=== PATIENT | female | born 1955 | race Caucasian/White ===

== ENCOUNTER 2017-03-22 12:36 | Inpatient (IN) | payer MEDICAID, OTHER ==
[~2017-03-22] VITALS: Ht 157.5 cm; Wt 82.6 kg
[2017-03-22 14:21] LABS: ANION GAP 8 mmol/L (8-16); CALCIUM, TOTAL 9.5 mg/dL (8.8-10.5); CARBON DIOXIDE 29 mmol/L (22-29); CHLORIDE 102 mmol/L (98-107); CREATININE 0.99 mg/dL (0.60-1.30); GLOMERULAR FILTR. RATE CALC 57 mL/min (>60); GLUCOSE,RANDOM 107 mg/dL (70-110); POTASSIUM 4.5 mmol/L (3.5-5.1); SODIUM SERUM 139 mmol/L (136-145); UREA NITROGEN, BLOOD 18 mg/dL (7-18)
[2017-03-22 14:24] LABS: BASOPHILS # (AUTO) 0.04 K/uL (0.00-0.20); BASOPHILS % (AUTO) 0.4 % (0.0-2.0); EOSINOPHILS # (AUTO) 0.27 K/uL (0.00-0.70); EOSINOPHILS % (AUTO) 2.82 % (1.0-6.0); HEMATOCRIT 41.6 % (36-46); HEMOGLOBIN 13.7 g/dL (12.0-16.0); LYMPHOCYTES # (AUTO) 2.8 K/uL (1.0-4.8); LYMPHOCYTES % (AUTO) 29.1 % (22.0-44.0); MEAN CORPUSCULAR HEMOGLOBIN 29.6 pg (26.0-34.0); MEAN CORPUSCULAR HGB CONC 32.8 G/dL (31.0-37.0); MEAN CORPUSCULAR VOLUME 90 fL (80-100); MONOCYTES # (AUTO) 0.7 K/uL (0.1-1.0); MONOCYTES % (AUTO) 6.9 % (2.0-9.0); NEUTROPHILS # (AUTO) 5.9 K/uL (1.8-7.7); NEUTROPHILS % (AUTO) 60.7 % (40.0-70.0); PLATELET COUNT (AUTO) 562 K/uL (150-450); RED BLOOD CELL COUNT(AUTO) 4.61 MIL/uL (4.00-5.20)
[2017-03-22 14:29] LABS: ALANINE AMINOTRANSFERASE 20 U/L (12-78); ALBUMIN 3.5 g/dL (3.4-5.0); ALKALINE PHOSPHATASE 112 U/L (46-116); ASPARTATE AMINOTRANSFERASE 16 U/L (15-37); BILIRUBIN,TOTAL 0.4 mg/dL (0.1-1.0); TOTAL PROTEIN, SERUM 7.6 g/dL (6.4-8.2)
[2017-03-22] MEDS ORDERED: HALOPERIDOL 5 MG TABLET PO PRN (15:30)
[2017-03-22] MEDS ORDERED: ZOLPIDEM TARTRATE 10 MG TABLET PO PRN (15:30)
[2017-03-22] MEDS ORDERED: LORazepam 2 MG TABLET PO PRN (15:30)
[2017-03-22 19:13] LABS: AMPHET/METH SCREEN,URINE POSITIVE (NEGATIVE); BARBITURATE SCREEN, URINE NEGATIVE (NEGATIVE); BENZODIAZEPINES SCREEN,URINE NEGATIVE (NEGATIVE); CANNABINOID SCREEN,URINE NEGATIVE (NEGATIVE); COCAINE SCREEN,URINE NEGATIVE (NEGATIVE); METHADONE SCREEN, URINE NEGATIVE (NEGATIVE); OPIATE SCREEN,URINE NEGATIVE (NEGATIVE)
[2017-03-22 19:14] LABS: PHENCYCLIDINE SCREEN,URINE NEGATIVE (NEGATIVE)
[2017-03-23 08:29] LABS: FREE T4 (FREE THYROXINE) 0.97 ng/dL (0.76-1.46); THYROID STIMULATING HORMONE 0.63 uIU/mL (0.36-3.74)
[2017-03-23 09:45] VITALS: BP 129/63
[2017-03-23] MEDS: NICOTINE 7 MG/24 HOUR PATCH TD SCH (13:59)
[2017-03-23 16:21] VITALS: BP 131/63
[2017-03-24] MEDS: NICOTINE 7 MG/24 HOUR PATCH TD SCH (09:44)
[2017-03-24 19:22] VITALS: BP 128/67
[2017-03-25] MEDS: SERTRALINE HCL 50 MG TABLET PO SCH (09:33)
[2017-03-25] MEDS: NICOTINE 7 MG/24 HOUR PATCH TD SCH (09:35)
[2017-03-25 13:45] VITALS: BP 198/112
[2017-03-25] MEDS: METOPROLOL TARTRATE 25 MG TABLET PO SCH ×2 (14:49→17:30)
[2017-03-25 15:43] VITALS: BP 194/120
[2017-03-25] MEDS: HydrALAZINE HCL 25 MG TABLET PO SCH ×2 (16:16→17:46)
[2017-03-25 17:00] VITALS: BP 180/100
[2017-03-25] MEDS: BACITRACIN 28.4 GM OINTMENT TP SCH (17:32)
[2017-03-25 21:45] VITALS: BP 152/76
[2017-03-25 23:57] LABS: APPEARANCE,URINE CLEAR (CLEAR); BILIRUBIN,URINE NEGATIVE (NEGATIVE); GLUCOSE, URINE (UA) NEGATIVE (NEGATIVE); KETONES,URINE NEGATIVE (NEGATIVE); LEUKOCYTE ESTERASE ,URINE NEGATIVE (NEGATIVE); NITRATE,URINE POSITIVE (NEGATIVE); OCCULT BLOOD,URINE NEGATIVE (NEGATIVE); PROTEIN,URINE NEGATIVE (NEGATIVE); UROBILINOGEN,URINE 0.2 mg/dL (<=1.0)
[2017-03-25 23:59] LABS: HCG,QUAL RESULT NEGATIVE (NEGATIVE)
[2017-03-26 00:05] LABS: BACTERIA,URINE Moderate /HPF (None Seen); RBC,URINE None Seen /HPF (0-2); SQUAMOUS EPITHELIAL CELL,UR Rare /LPF (None Seen); WBC,URINE 0-2 /HPF (0-5)
[2017-03-26 05:30] VITALS: BP 188/94
[2017-03-26] MEDS: CloNIDine HCL 0.1 MG TABLET PO PRN (05:30)
[2017-03-26 06:30] VITALS: BP 168/74
[2017-03-26] MEDS: SERTRALINE HCL 50 MG TABLET PO SCH (08:29)
[2017-03-26 08:30] VITALS: BP 162/113
[2017-03-26] MEDS: HydrALAZINE HCL 25 MG TABLET PO SCH ×3 (08:30→16:19)
[2017-03-26] MEDS: METOPROLOL TARTRATE 25 MG TABLET PO SCH ×2 (08:32→16:19)
[2017-03-26] MEDS: NICOTINE 7 MG/24 HOUR PATCH TD SCH (08:34)
[2017-03-26] MEDS: BACITRACIN 28.4 GM OINTMENT TP SCH ×2 (10:11→16:20)
[2017-03-26 12:32] VITALS: BP 130/74
[2017-03-26 17:15] VITALS: BP 141/81
[2017-03-27 02:15] VITALS: BP 179/67
[2017-03-27] MEDS: CloNIDine HCL 0.1 MG TABLET PO PRN (02:49)
[2017-03-27 03:49] VITALS: BP 135/63
[2017-03-27 08:40] VITALS: BP 137/73
[2017-03-27] MEDS: HydrALAZINE HCL 25 MG TABLET PO SCH ×3 (09:21→17:43)
[2017-03-27] MEDS: BACITRACIN 28.4 GM OINTMENT TP SCH ×2 (09:21→17:39)
[2017-03-27] MEDS: METOPROLOL TARTRATE 25 MG TABLET PO SCH ×2 (09:21→17:43)
[2017-03-27] MEDS: SERTRALINE HCL 50 MG TABLET PO SCH (09:21)
[2017-03-27] MEDS: NICOTINE 7 MG/24 HOUR PATCH TD SCH (09:27)
[2017-03-27 17:30] VITALS: BP 162/72
[2017-03-27] MEDS: CIPROFLOXACIN HCL 500 MG TABLET PO SCH (17:40)
[2017-03-28 08:42] VITALS: BP 177/71
[2017-03-28] MEDS: CIPROFLOXACIN HCL 500 MG TABLET PO SCH ×2 (09:35→16:46)
[2017-03-28] MEDS: METOPROLOL TARTRATE 25 MG TABLET PO SCH ×2 (09:35→16:46)
[2017-03-28] MEDS: HydrALAZINE HCL 25 MG TABLET PO SCH ×3 (09:35→16:46)
[2017-03-28] MEDS: SERTRALINE HCL 50 MG TABLET PO SCH (09:35)
[2017-03-28] MEDS: BACITRACIN 28.4 GM OINTMENT TP SCH ×2 (09:35→16:46)
[2017-03-28] MEDS: NICOTINE 7 MG/24 HOUR PATCH TD SCH (09:50)
[2017-03-28 18:58] VITALS: BP 167/74
[2017-03-28] MEDS: CloNIDine HCL 0.1 MG TABLET PO PRN (20:26)
[2017-03-29 09:57] VITALS: BP 160/80
[2017-03-29] MEDS: CIPROFLOXACIN HCL 500 MG TABLET PO SCH ×2 (11:23→17:50)
[2017-03-29] MEDS: HydrALAZINE HCL 25 MG TABLET PO SCH ×3 (11:23→17:50)
[2017-03-29] MEDS: NICOTINE 7 MG/24 HOUR PATCH TD SCH (11:23)
[2017-03-29] MEDS: SERTRALINE HCL 50 MG TABLET PO SCH (11:23)
[2017-03-29] MEDS: BACITRACIN 28.4 GM OINTMENT TP SCH ×2 (11:23→17:50)
[2017-03-29] MEDS: METOPROLOL TARTRATE 25 MG TABLET PO SCH ×2 (11:24→17:50)
[2017-03-29 16:03] VITALS: BP 136/74
[2017-03-30] MEDS: HydrALAZINE HCL 25 MG TABLET PO SCH ×2 (08:19→12:30)
[2017-03-30] MEDS: NICOTINE 7 MG/24 HOUR PATCH TD SCH (08:19)
[2017-03-30] MEDS: BACITRACIN 28.4 GM OINTMENT TP SCH (08:20)
[2017-03-30] MEDS: SERTRALINE HCL 50 MG TABLET PO SCH (08:20)
[2017-03-30] MEDS: CIPROFLOXACIN HCL 500 MG TABLET PO SCH (08:20)
[2017-03-30] MEDS: METOPROLOL TARTRATE 25 MG TABLET PO SCH (08:20)
[2017-03-30 08:45] VITALS: BP 159/98
[2017-03-30] MEDS ORDERED: SERT50TA12 PO (11:01)
[2017-03-30] MEDS ORDERED: METO25 PO (11:24)
[2017-03-30] MEDS ORDERED: HYDR25TA84 PO (11:25)
[2017-03-30] MEDS ORDERED: CIPR-278 PO (11:25)
== END 2017-03-30 13:45 | disposition home or self-care (01) | DRG 751 ==
LOC: EMS 12:37 → AHU 03-23 09:06 → 3EI 03-23 18:46
PROVIDERS: ADMIT Psychiatry & Neurology Child & Adolescent Psychiatry; ATTEND Psychiatry & Neurology Child & Adolescent Psychiatry
DX: F33.2 Major depressive disorder, recurrent severe without psychotic features (principal); R45.851 Suicidal ideations; Z91.14 Patient's other noncompliance with medication regimen; I10 Essential (primary) hypertension; F15.10 Other stimulant abuse, uncomplicated; F17.210 Nicotine dependence, cigarettes, uncomplicated; F10.10 Alcohol abuse, uncomplicated; Z91.5 Personal history of self-harm; Z59.0 Homelessness; Z86.73 Personal history of transient ischemic attack (TIA), and cerebral infarction without residual deficits; Z88.8 Allergy status to other drugs, medicaments and biological substances
CPT/HCPCS: 84439; 84443; 87086; 97161; 97165; 99285; G0480

== ENCOUNTER 2017-06-19 14:49 | Emergency (ER) | payer OTHER ==
[~2017-06-19] VITALS: Ht 167.6 cm; Wt 72.7 kg
[~2017-06-19 14:49] MED LIST: CIPR-278 PO; HYDR25TA84 PO; METO25 PO; SERT50TA12 PO
[2017-06-19] MEDS ORDERED: SODIUM CHLORIDE 0.9% 1,000 ML IV ONE (16:00)
[2017-06-19] MEDS ORDERED: KETOROLAC TROMETHAMINE 30 MG/ML VIAL IVP ONE (16:45)
[2017-06-19 18:12] LABS: BASOPHILS % (AUTO) 1.3 % (0.0-2.0); EOSINOPHILS % (AUTO) 3.2 % (1.0-6.0); HEMATOCRIT 39.5 % (36-46); HEMOGLOBIN 12.8 g/dL (12.0-16.0); LYMPHOCYTES % (AUTO) 38.6 % (22.0-44.0); MEAN CORPUSCULAR HEMOGLOBIN 27.1 pg (26.0-34.0); MEAN CORPUSCULAR HGB CONC 32.5 G/dL (31.0-37.0); MEAN CORPUSCULAR VOLUME 83 fL (80-100); MONOCYTES # (AUTO) 0.6 K/uL (0.1-1.0); MONOCYTES % (AUTO) 6.2 % (2.0-9.0); NEUTROPHILS # (AUTO) 5.3 K/uL (1.8-7.7); NEUTROPHILS % (AUTO) 50.7 % (40.0-70.0); PLATELET COUNT (AUTO) 434 K/uL (150-450); RED BLOOD CELL COUNT(AUTO) 4.74 MIL/uL (4.00-5.20); RED CELL DISTRIBUTION WIDTH 16.5 % (11.5-14.5)
[2017-06-19 18:22] LABS: AMPHET/METH SCREEN,URINE POSITIVE (NEGATIVE); BARBITURATE SCREEN, URINE NEGATIVE (NEGATIVE); BENZODIAZEPINES SCREEN,URINE NEGATIVE (NEGATIVE); CANNABINOID SCREEN,URINE NEGATIVE (NEGATIVE); COCAINE SCREEN,URINE NEGATIVE (NEGATIVE); METHADONE SCREEN, URINE NEGATIVE (NEGATIVE); OPIATE SCREEN,URINE NEGATIVE (NEGATIVE)
[2017-06-19 18:25] LABS: ANION GAP 9 mmol/L (8-16); CALCIUM, TOTAL 9.3 mg/dL (8.8-10.5); CARBON DIOXIDE 30 mmol/L (22-29); CHLORIDE 106 mmol/L (98-107); CREATININE 1.07 mg/dL (0.60-1.30); GLOMERULAR FILTR. RATE CALC 52 mL/min (>60); GLUCOSE,RANDOM 134 mg/dL (70-110); SODIUM SERUM 145 mmol/L (136-145); UREA NITROGEN, BLOOD 21 mg/dL (7-18)
[2017-06-19 18:27] LABS: PHENCYCLIDINE SCREEN,URINE NEGATIVE (NEGATIVE)
[2017-06-19 18:31] LABS: ALANINE AMINOTRANSFERASE 15 U/L (12-78); ALBUMIN 3.1 g/dL (3.4-5.0); ALKALINE PHOSPHATASE 86 U/L (46-116); ASPARTATE AMINOTRANSFERASE 11 U/L (15-37); BILIRUBIN,TOTAL 0.4 mg/dL (0.1-1.0); TOTAL PROTEIN, SERUM 6.7 g/dL (6.4-8.2)
[2017-06-19 19:20] VITALS: BP 143/76
== END 2017-06-19 19:20 | disposition home or self-care (01) ==
LOC: EMS 14:50
DX: R51 Headache (principal); F43.9 Reaction to severe stress, unspecified; F15.10 Other stimulant abuse, uncomplicated; I25.2 Old myocardial infarction; F17.210 Nicotine dependence, cigarettes, uncomplicated; F19.90 Other psychoactive substance use, unspecified, uncomplicated; Z59.0 Homelessness; Z86.73 Personal history of transient ischemic attack (TIA), and cerebral infarction without residual deficits
CPT/HCPCS: 36415; 70450; 80053; 80307; 85025; 96374; 99285; 99406; G0480; J1885; J7030